=== PATIENT | male | born 1995 | race Caucasian/White ===

== ENCOUNTER 2021-12-28 17:56 | Emergency (ER) | payer OTHER, SELFPAY ==
[2021-12-28 17:58] VITALS: BP 141/89; PULSE 99; RESP 16; TEMP 36.6; O2SAT 96; BMI 21.7
--- NOTE | 2021-12-28 18:15 | ED.VIS.GI ---
HPI HPI - GI History of Present Illness Chief Complaint: Abd Pain Informant: patient and spouse/S.O. Narrative Narrative: Presenting with epigastric pain over the last couple days with black tarry stools and diarrhea. States pain worse with any foods. He has been using Advil more frequently for headache symptoms. Denies recent antibiotics. 2 days ago for bouts of diarrhea that was tarry yesterday had a few episodes today improving denies any bloody stools today. No nausea or vomiting. No abdominal surgeries. Denies family history of Crohn's disease or ulcerative colitis. He states he was told of IBS when he was 11 or 12 however never had any endoscopies. No abdominal surgeries. Increasing fatigue today no lightheaded symptoms [facility] testing that was negative. Prior similar symptoms: No PFSH PFSH Home Medications pantoprazole 40 mg tablet,delayed release 40 mg PO DAILY #30 tabs 12/28/21 [Rx Last Taken Unknown] sucralfate 1 gram tablet (Carafate) 1 g PO BID #60 tabs 12/28/21 [Rx Last Taken Unknown] Allergy/AdvReac Type Severity Reaction Status Date / Time No Known Allergies Allergy Verified 12/28/21 17:58 Surgical History H/O thumb surgery Social History Smoking Status: Current every day smoker tobacco type: cigarettes ROS ROS ED Constitutional Constitutional ED: Denies chills, fever(s) or sweats Eyes Eyes: Denies change in vision ENT ENT ED: Denies dysphagia or sore throat Cardiovascular Cardiovascular: Denies chest pain, leg edema, palpitations or racing heartbeat Respiratory/Chest Respiratory/Chest: Denies cough, dyspnea or dyspnea on exertion Gastrointestinal Gastrointestinal: Reports abdominal pain and diarrhea; Denies nausea or vomiting Genitourinary Genitourinary ED: Denies dysuria, hematuria or urinary frequency Musculoskeletal Musculoskeletal: Denies back pain, extremity pain or neck pain Integumentary Denies rash or wounds Neurologic Neurologic: Denies headache(s), paresthesias or weakness EXAM Physical Exam Const Vital Signs: 12/28/21 17:58 Temperature 98 F Temperature Source Temporal Pulse Rate 99 Respiratory Rate 16 Blood Pressure 141/89 H Blood Pressure Mean 106 Pulse Ox 96 Oxygen Delivery Method Room Air Positive well nourished and well developed General Appearance ED: well developed and NAD HEENT Reports moist mucous membranes normocephalic and atraumatic Eyes PERRL, EOMs intact bilaterally and conjunctivae normal General Eye ED: Yes normal appearance of both eyes Neck no lymphadenopathy and supple General: Negative for tenderness Chest Wall Chest: Negative for tenderness Resp normal respiratory effort and normal air movement Effort and Inspection: symmetric chest movement; Negative for respiratory distress Cardio regular rate, regular rhythm and no murmurs Peripheral Pulses: pulses 2+ throughout GI normal to inspection, nondistended, normoactive bowel sounds and non-tender GI Narrative: Negative Graves's McBurney's tenderness. No reproducible tenderness. Palpation: Negative for guarding or rebound tenderness present Back/Spine no CVA tenderness and no thoracic nor lumbar tenderness Extremity normal to inspection General Extremety ED: Negative for edema or tenderness General Extremity: Negative for edema Neuro oriented x3 and no sensory deficits noted Sensorium / Orientation: awake and alert Skin no rashes or lesions noted and no wounds MDM MDM MDM Narrative Medical decision making narrative: Patient nonsurgical abdomen symptoms currently subsided. Reported melanotic stools that is resolving. He has been taking NSAIDs. Laboratory studies hemoglobin 16.3 normal lipase and liver enzymes. He was given Protonix IV. He is continued on PPI with Carafate for concerns for gastric ulcer. He is clinically stable. He is given follow-up with GI with return precautions. He will avoid NSAIDs. All questions were answered. Lab Data Attestation: I reviewed the patient's lab results. Labs: Laboratory Results - last 24 hr 12/28/21 12/28/21 18:32 18:32 WBC 6.9 RBC 5.21 Hgb 16.3 Hct 46.4 MCV 89.1 MCH 31.3 MCHC 35.1 RDW Std Deviation 36.8 RDW Coeff of Lang 11.4 L Plt Count 230 MPV 8.7 Immature Gran % (Auto) 0.400 Neut % (Auto) 59.2 Lymph % (Auto) 31.7 [place] % (Auto) 7.4 Eos % (Auto) 0.9 Baso % (Auto) 0.4 Absolute Neuts (auto) 4.1 Absolute Lymphs (auto) 2.17 Nucleated RBC % 0 Sodium 139 Potassium 3.8 Chloride 106 Carbon Dioxide 28.0 Anion Gap 5 BUN 10 Creatinine 0.77 Estim Creat Clear Calc 126.74 Est GFR (MDRD) Af Amer 158 Est GFR (MDRD) Non-Af 130 BUN/Creatinine Ratio 13.0 Glucose 96 Calcium 9.0 Total Bilirubin 0.70 AST 16 ALT 23 Alkaline Phosphatase 64 Total Protein 7.3 Albumin 4.0 Globulin 3.3 Albumin/Globulin Ratio 1.2 Lipase 68 L Discharge Plan Triage Chief Complaint: Abd Pain ED Provider: Jayy Ro Dx/Rx/DC Orders Clinical Impression: Gastritis, Abdominal pain, epigastric Instructions: Understanding Gastritis, ED Gastritis Ulcer No Abx Prescriptions: New pantoprazole 40 mg tablet,delayed release (DR/EC) 40 mg PO DAILY Qty: 30 0RF sucralfate [Carafate] 1 gram tablet 1 g PO BID Qty: 60 0RF Referrals: Friend,DO Deangelo [Med Staff - Active Staff] - Activity Restrictions/Additional Instructions: Clinical gastritis with gastric ulcer concerns. Avoid Advil or any NSAIDs. Your hemoglobin 16.3. Take medication as prescribed. You may use Tylenol. Follow-up with GI as an outpatient. Return if any worsening symptoms. Disposition Disposition: Home, Self Care Discharge Date/Time: 12/28/21 19:47
[2021-12-28] MEDS: 0.9% Normal Saline 1,000 ML 1000 ML IV (18:30)
[2021-12-28 18:41] LABS: Absolute Lymphocyte Count 2.17 X10^3/uL (0.83-4.51); Absolute Neutrophil Count 4.1 X10^3/uL (2.0-7.7); Basophil# 0.03 X10^3/uL; Basophil% 0.4 % (0-1); Eosinophil# 0.06 X10^3/uL; Eosinophils% 0.9 % (0-5); Hematocrit 46.4 % (40-54); Hemoglobin 16.3 g/dL (13.0-16.5); Lymphocyte # 2.17 X10^3/ul (0.83-4.51); Lymphocyte % 31.7 % (19-41); Mean Corp Hgb Conc 35.1 g/dL (32-36); Mean Corpuscular Hgb 31.3 pg (27.0-32.0); Mean Corpuscular Volume 89.1 fL (80-94); Mean Platelet Vol. 8.7 fl (6.2-12.0); Monocyte# 0.51 X10^3/uL; Monocyte% 7.4 % (0-10); NRBC Flagged by Analyzer 0 % (0-5); Neutrophil # 4.05 X10^3/uL (2.7-7.7); Neutrophil % 59.2 % (47-70); Platelet Count 230 K/mm3 (150-450); RBC Distribution Width CV 11.4 % (11.6-14.6); RBC Distribution Width SD 36.8 fl (35.1-43.9); Red Blood Count 5.21 M/mm3 (4.6-6.2); White Blood Count 6.9 K/mm3 (4.4-11.0)
[2021-12-28 19:03] LABS: ALB/GLOB Ratio 1.2 RATIO (0.9-2.4); AST(SGOT) 16 U/L (15-37); Alanine Aminotransfer ALT/SGPT 23 U/L (16-61); Alkaline Phosphatase 64 U/L (45-117); Anion Gap 5 (5-15); BUN 10 mg/dL (7-18); Chloride 106 mmol/L (98-107); Creatinine, Serum 0.77 mg/dL (0.70-1.30); EST Glomerular Filtration Rate 130 mL/min (>60); Est Glom Filt Rate - Afr Amer 158 mL/min (>60); Estimated Creatinine Clearance 126.74 ml/min; Globulin 3.3 g/dL (2.2-4.2); Glucose 96 mg/dL (74-106); Lipase 68 U/L (73-393); Potassium 3.8 mmol/L (3.5-5.1); Protein, Total 7.3 g/dL (6.4-8.2); Sodium Level 139 mmol/L (136-145)
== END 2021-12-28 19:47 | disposition home or self-care (01) ==
PROVIDERS: Emergency Provider Emergency Medicine; Visit Provider Emergency Medicine
DX: K29.70 Gastritis, unspecified, without bleeding (principal); R10.13 Epigastric pain; F17.210 Nicotine dependence, cigarettes, uncomplicated
CPT/HCPCS: 80053; 83690; 85025; 96365; 99282; J7030; J3490

== ENCOUNTER 2023-03-23 10:18 | Emergency (ER) | payer OTHER, SELFPAY ==
[2023-03-23 10:19] VITALS: BP 141/82; PULSE 83; RESP 16; TEMP 37; O2SAT 99; BMI 21.7
--- NOTE | 2023-03-23 10:51 | EX.ED.DYSGE1 ---
HPI History of Present Illness Chief Complaint: Nausea/Vomiting Informant: patient Narrative Narrative: Patient is a 27-year-old male with history of migraines and IBS (diagnosed through peds neurology and GI respectively as a child) presenting for vomiting that turned into hematemesis. Patient states he developed headache yesterday and it turned into a migraine around 3 PM yesterday. He started having multiple episodes of vomiting. He states is pretty typical for he does get a migraine. He was vomiting until around midnight. At some point he looked in the trash can and noticed that there was also blood in the trash can. He told his mom about it this morning as he continues to have a mild headache however not as severe. She brought him in to be evaluated further. Patient is never had any endoscopy before. Does not take any medicine on a daily basis but does take Juli, Tylenol or Excedrin as needed for his headaches. He states sometimes he will take his mom sumatriptan with relief of his headaches. Does not have a primary care doctor. His last bowel movement was diarrhea last night. Denies any black or blood in his stool. Denies any fever or chills. No family history of inflammatory bowel disease but does have a strong family history of irritable bowel syndrome. Notes he is having some throat/chest pain but he feels it is from the vomiting. Denies any abdominal pain. No fever or chills. No other complaints or concerns at this time. Does report to me that he would vomit frequently and often for minor reasons. Initially he thought it was from drinking alcohol when he was in his early 20s but stopped drinking alcohol but still gets these episodes of vomiting. PFSH PFSH Home Medications sucralfate 1 gram tablet (Carafate) 1 g PO BID #60 tabs 12/28/21 [Rx Last Taken Unknown] ondansetron 4 mg disintegrating tablet 4 mg PO Q6H PRN nausea and vomiting #20 tabs 03/23/23 [Rx Last Taken Unknown] pantoprazole 40 mg tablet,delayed release 40 mg PO DAILY #30 tabs 03/23/23 [Rx Last Taken Unknown] Allergy/AdvReac Type Severity Reaction Status Date / Time No Known Allergies Allergy Verified 03/23/23 10:19 Surgical History H/O thumb surgery Social History Smoking Status: Current every day smoker tobacco type: cigarettes ROS ROS ED Constitutional Constitutional ED: Denies chills or fever(s) Cardiovascular Cardiovascular: Reports chest pain Respiratory/Chest Respiratory/Chest: Denies cough or dyspnea Gastrointestinal Gastrointestinal: Reports diarrhea, nausea and vomiting; Denies abdominal pain or melena Genitourinary Genitourinary ED: Denies dysuria Musculoskeletal Musculoskeletal: Denies arthralgias or myalgias Integumentary Denies rash Neurologic Neurologic: Reports headache(s); Denies paresthesias or weakness Psychiatric Psychiatric: Denies anxiety Hematologic/Lymphatic Hematologic/Lymphatic: Denies easy bleeding or easy bruising EXAM Physical Exam Const Vital Signs: 03/23/23 10:19 Temperature 98.6 F Temperature Source Temporal Pulse Rate 83 Respiratory Rate 16 Blood Pressure 141/82 H Blood Pressure Mean 101 Pulse Ox 99 Oxygen Delivery Method Room Air Positive well nourished and well developed General Appearance ED: well developed HEENT Reports moist mucous membranes Eyes PERRL and EOMs intact bilaterally General Eye ED: Negative for pale conjunctiva Neck supple Neck Narrative: No nuchal rigidity or meningeal signs Chest Wall inspection of chest normal and palpation of chest normal Chest Narrative: No chest wall crepitus Resp normal respiratory effort and clear to auscultation bilaterally Cardio regular rate, regular rhythm and no murmurs GI normal to inspection, nondistended, normoactive bowel sounds and non-tender Neuro oriented x3 Sensorium / Orientation: alert Motor Exam: Negative for general weakness Psych mental status grossly normal Skin no rashes or lesions noted and no wounds MDM MDM MDM Narrative Medical decision making narrative: Patient evaluated for migraine headache with subsequent vomiting that turned and hematemesis. Still has a mild headache but appears nontoxic. No significant photophobia in the exam room. No focal neurologic symptoms. Differential includes gastritis, Aurea-Dominguez tear, Boerhaave's but less likely as patient is quite nontoxic-appearing, pancreatitis, cirrhosis of the liver. Patient is given IV fluids, Compazine and Benadryl in the ER. We will refrain from giving NSAIDs for his headache due to report of GI bleeding. 2 view chest x-ray reviewed by myself as well as radiology does not show any acute process. Radiology does interpreted on is hyperinflated however clinically patient is not showing any signs of asthma exacerbation/air trapping. He has no further vomiting or hematemesis in the ER. I do not think requires an NG tube at this time. CBC is normal with a normal hemoglobin of 16.0 and no leukocytosis. As normal platelets. CMP largely normal, mildly elevated total bilirubin of 1.1 which is nonspecific. Low suspicion for an acute obstructive process of the gallbladder/bile duct. I do not think he requires an of right upper quadrant ultrasound or further imaging. Lipase is low so low suspicion for acute pancreatitis. I suspect his hematemesis was associated with his forceful vomiting/Aurea Dominguez tear however he is stable with no further bleeding or vomiting so I do not think he requires admission for emergent EGD. Is tolerating water in the ER without any difficulty Patient has improvement of symptoms with medication. Is given a dose of oral Protonix in the ER will be discharged home with a 2-week course. Given referral for family doctor as well as surgery as I suspect he will benefit from an EGD. Counseled the importance of outpatient follow-up. We will discuss further abortive migraine treatment with PCP. Lab Data Attestation: I reviewed the patient's lab results. Labs: Laboratory Results - last 24 hr 03/23/23 11:00 WBC 5.5 RBC 5.01 Hgb 16.0 Hct 45.2 MCV 90.2 MCH 31.9 MCHC 35.4 RDW Std Deviation 38.7 RDW Coeff of Lang 11.7 Plt Count 221 MPV 8.8 Immature Gran % (Auto) 0.200 Neut % (Auto) 64.1 Lymph % (Auto) 27.9 [place] % (Auto) 6.1 Eos % (Auto) 1.3 Baso % (Auto) 0.4 Absolute Neuts (auto) 3.5 Absolute Lymphs (auto) 1.52 Nucleated RBC % 0 Sodium 138 Potassium 3.6 Chloride 104 Carbon Dioxide 29.0 Anion Gap 5 BUN 12 Creatinine 0.75 Estim Creat Clear Calc 129.27 Est GFR (MDRD) Af Amer 161 Est GFR (MDRD) Non-Af 133 BUN/Creatinine Ratio 16.0 Glucose 105 Calcium 8.9 Total Bilirubin 1.10 H AST 17 ALT 29 Alkaline Phosphatase 63 Total Protein 7.2 Albumin 4.1 Globulin 3.1 Albumin/Globulin Ratio 1.3 Lipase 10 L Radiography Diagnostic Testing: Clinical Impression(s) from Imaging Studies Chest X-Ray 03/23/23 11:11 IMPRESSION: Hyperinflation. Electronically Signed: Frantz Smith MD at 11:59 EST , Discharge Plan Triage Chief Complaint: Nausea/Vomiting ED Provider: Jojo Sen Dx/Rx/DC Orders Clinical Impression: Headache, migraine, Hematemesis Instructions: ED, Migraine (Classical), ED Upper GI Bleeding (Stable) Prescriptions: New ondansetron 4 mg tablet,disintegrating 4 mg PO Q6H PRN (Reason: nausea and vomiting) Qty: 20 0RF Continued pantoprazole 40 mg tablet,delayed release (DR/EC) 40 mg PO DAILY Qty: 30 0RF No Action sucralfate [Carafate] 1 gram tablet 1 g PO BID Qty: 60 0RF Primary Care Provider: Care Physician,No Primary Referrals: Gabrielle Sifuentes MD [Med Staff - Farm Adviser] - As soon as possible Josue Lin MD [Med Staff - Active Staff] - As soon as possible NOT,DEFINED [Non-Staff] - Activity Restrictions/Additional Instructions: Your work-up was largely normal today. I suspect the blood in your vomit was from irritation of your esophagus from all of the throwing up. Please take the antacid as prescribed. Please follow-up outpatient with general surgery as I suspect you would benefit from further evaluation/EGD to look at your esophagus and stomach. You have also given referral for primary care doctor. Disposition Disposition: Home, Self Care
[2023-03-23] MEDS: 0.9% Normal Saline (1000mL) 1,000 ML 1000 ML IV (10:57)
[2023-03-23] MEDS: DiphenhydrAMINE 50 MG/ML Syringe 25 MG IV (10:57)
[2023-03-23] MEDS: proCHLORPERazine 10 MG/2 ML Vial 5 MG IV (10:57)
--- NOTE | 2023-03-23 11:11 | RAD_ITS ---
STUDY: X-RAY CHEST REASON FOR EXAM: Male, 27 years old. Chest pain, vomiting TECHNIQUE: Hemoptysis. Chest pain. COMPARISON: None. FINDINGS: Hyperinflation. The lungs are clear. There is no demonstrated pleural abnormality. Normal size heart. Normal mediastinum and ness. Normal visualized pulmonary arteries. Normal visualized aortic arch and descending thoracic aorta. Normal visualized thoracic spine. Normal visualized ribs, clavicles, and shoulders. There is no demonstrated abnormality of the visualized soft tissue structures of the upper abdomen. RAD/Chest PA and Lateral IMPRESSION: Hyperinflation. Electronically Signed: Frantz Smith MD at 11:59 EST ,
[2023-03-23 11:15] LABS: Absolute Lymphocyte Count 1.52 X10^3/uL (0.83-4.51); Absolute Neutrophil Count 3.5 X10^3/uL (2.0-7.7); Basophil# 0.02 X10^3/uL; Basophil% 0.4 % (0-1); Eosinophil# 0.07 X10^3/uL; Eosinophils% 1.3 % (0-5); Hematocrit 45.2 % (40-54); Lymphocyte # 1.52 X10^3/ul (0.83-4.51); Lymphocyte % 27.9 % (19-41); Mean Corp Hgb Conc 35.4 g/dL (32-36); Mean Corpuscular Hgb 31.9 pg (27.0-32.0); Mean Corpuscular Volume 90.2 fL (80-94); Mean Platelet Vol. 8.8 fl (6.2-12.0); Monocyte# 0.33 X10^3/uL; Monocyte% 6.1 % (0-10); NRBC Flagged by Analyzer 0 % (0-5); Neutrophil % 64.1 % (47-70); Platelet Count 221 K/mm3 (150-450); RBC Distribution Width CV 11.7 % (11.6-14.6); RBC Distribution Width SD 38.7 fl (35.1-43.9); Red Blood Count 5.01 M/mm3 (4.6-6.2); White Blood Count 5.5 K/mm3 (4.4-11.0)
[2023-03-23 11:28] LABS: ALB/GLOB Ratio 1.3 RATIO (0.9-2.4); AST(SGOT) 17 U/L (15-37); Alanine Aminotransfer ALT/SGPT 29 U/L (16-61); Albumin, Serum 4.1 g/dL (3.2-5.0); Alkaline Phosphatase 63 U/L (45-117); Anion Gap 5 (5-15); BUN 12 mg/dL (7-18); Calcium,Total 8.9 mg/dL (8.5-10.1); Chloride 104 mmol/L (98-107); Creatinine, Serum 0.75 mg/dL (0.70-1.30); EST Glomerular Filtration Rate 133 mL/min (>60); Est Glom Filt Rate - Afr Amer 161 mL/min (>60); Estimated Creatinine Clearance 129.27 ml/min; Globulin 3.1 g/dL (2.2-4.2); Glucose 105 mg/dL (74-106); Lipase 10 U/L (13-75); Potassium 3.6 mmol/L (3.5-5.1); Protein, Total 7.2 g/dL (6.4-8.2); Sodium Level 138 mmol/L (136-145)
[2023-03-23] MEDS: Pantoprazole Sodium 40 MG Tablet PO (13:03)
[2023-03-23 13:07] VITALS: BP 105/73; PULSE 68; RESP 16; O2SAT 96
== END 2023-03-23 13:08 | disposition home or self-care (01) ==
PROVIDERS: Emergency Provider Emergency Medicine; Visit Provider Emergency Medicine
DX: G43.909 Migraine, unspecified, not intractable, without status migrainosus (principal); K92.0 Hematemesis; F17.210 Nicotine dependence, cigarettes, uncomplicated
CPT/HCPCS: 71046; 80053; 83690; 85025; 96361; 96374; 96375; 99284; J7030; A4216

== ENCOUNTER 2023-03-26 15:52 | Emergency (ER) | payer OTHER, SELFPAY ==
[2023-03-26 15:53] VITALS: BP 158/78; PULSE 78; RESP 16; TEMP 36.6; O2SAT 98; BMI 21.9
[2023-03-26 16:35] LABS: Absolute Lymphocyte Count 2.27 X10^3/uL (0.83-4.51); Absolute Neutrophil Count 3.1 X10^3/uL (2.0-7.7); Basophil# 0.03 X10^3/uL; Basophil% 0.5 % (0-1); Eosinophils% 1.7 % (0-5); Hematocrit 40.9 % (40-54); Hemoglobin 14.2 g/dL (13.0-16.5); Lymphocyte # 2.27 X10^3/ul (0.83-4.51); Lymphocyte % 38.9 % (19-41); Mean Corp Hgb Conc 34.7 g/dL (32-36); Mean Corpuscular Volume 89.3 fL (80-94); Mean Platelet Vol. 9.1 fl (6.2-12.0); Monocyte# 0.29 X10^3/uL; NRBC Flagged by Analyzer 0 % (0-5); Neutrophil % 53.2 % (47-70); Platelet Count 207 K/mm3 (150-450); RBC Distribution Width CV 11.7 % (11.6-14.6); RBC Distribution Width SD 37.5 fl (35.1-43.9); Red Blood Count 4.58 M/mm3 (4.6-6.2); White Blood Count 5.8 K/mm3 (4.4-11.0)
[2023-03-26 16:49] LABS: ALB/GLOB Ratio 1.5 RATIO (0.9-2.4); AST(SGOT) 18 U/L (15-37); Alanine Aminotransfer ALT/SGPT 29 U/L (16-61); Albumin, Serum 4.3 g/dL (3.2-5.0); Alkaline Phosphatase 60 U/L (45-117); Anion Gap 2 (5-15); BUN 11 mg/dL (7-18); BUN/Creat Ratio 13.5 RATIO (10-20); Calcium,Total 8.8 mg/dL (8.5-10.1); Chloride 106 mmol/L (98-107); Creatinine, Serum 0.81 mg/dL (0.70-1.30); EST Glomerular Filtration Rate 121 mL/min (>60); Est Glom Filt Rate - Afr Amer 147 mL/min (>60); Estimated Creatinine Clearance 120.59 ml/min; Globulin 2.8 g/dL (2.2-4.2); Glucose 85 mg/dL (74-106); Potassium 3.9 mmol/L (3.5-5.1); Protein, Total 7.1 g/dL (6.4-8.2); Sodium Level 139 mmol/L (136-145)
[2023-03-26 17:20] LABS: Bacteria 0 SEEN /hpf (None Seen); Mucous, Urine 0 SEEN /hpf (<or=2+); Red Blood Cells-Urine 0 SEEN /hpf (0-5); Squamous Epithelial Cells - UA 0 SEEN /hpf (0-5); White Blood Cells 0 SEEN /hpf (0-5)
[2023-03-26 17:21] LABS: Color, Urine Yellow (Yellow); Glucose, Dipstick Normal (Normal); Ketone-Dipstick Negative (Negative); Leukocyte Esterase-Dipstick Negative /ul (Negative); Nitrite-Dipstick Negative (Negative); Occult Blood-Urine Negative /ul (Negative); Protein-Dipstick Negative (Negative); Urine Bilirubin Dipstick Negative (Negative); Urine Clarity Clear (Clear); Urine Urobilinogen Normal (Normal); Urine pH 6.5 (5.0 - 8.0)
--- NOTE | 2023-03-26 17:24 | ED.VIS.GI ---
HPI HPI - GI History of Present Illness Chief Complaint: GI Bleed Informant: patient Abdominal Pain/Flank Pain Onset: Yesterday Context: Gradual Onset Timing: Continuous Quality: Sharp Location: LUQ Worsened by: Nothing Relieved by: Nothing Nausea/Vomiting/Emesis GI Symptom: Positive for Nausea and Vomiting Quality: Positive for Hematemesis Diarrhea/Melena/Hematochezia GI Symptom: Positive for Diarrhea and Melena; Negative for Hematochezia Onset: Yesterday Stool Quality: Positive for Black Episodes: 1 Associated Symptoms Associated Symptoms: Positive for Frequency; Negative for Dysuria or Hematuria Narrative Narrative: Patient presents with black stools that began yesterday. Patient states he was seen here recently for nausea and vomiting. Patient states that at that time he had an episode of hematemesis. Patient states he was told her from a tear in his esophagus. Patient admits to some left upper quadrant abdominal pain. Patient states nothing makes it better and nothing makes it worse. Patient describes it as sharp. Patient states it has been constant since yesterday. Patient admits to some urinary frequency but denies any dysuria or hematuria. Patient denies any fevers or chills. PFSH PFSH Home Medications sucralfate 1 gram tablet (Carafate) 1 g PO BID #60 tabs 12/28/21 [Rx Last Taken Unknown] ondansetron 4 mg disintegrating tablet 4 mg PO Q6H PRN nausea and vomiting #20 tabs 03/23/23 [Rx Last Taken Unknown] pantoprazole 40 mg tablet,delayed release 40 mg PO DAILY #30 tabs 03/23/23 [Rx Last Taken Unknown] Allergy/AdvReac Type Severity Reaction Status Date / Time No Known Allergies Allergy Verified 03/26/23 15:55 Surgical History H/O thumb surgery Social History Smoking Status: Current every day smoker tobacco type: cigarettes ROS ROS ED Constitutional Constitutional ED: Denies chills or fever(s) Eyes Eyes: Denies blurry vision or change in vision ENT ENT ED: Reports sore throat; Denies rhinorrhea Cardiovascular Cardiovascular: Reports chest pain; Denies palpitations Respiratory/Chest Respiratory/Chest: Denies cough or dyspnea Gastrointestinal Gastrointestinal: Reports abdominal pain, diarrhea, melena, nausea and vomiting Genitourinary Genitourinary ED: Reports urinary frequency; Denies dysuria or hematuria Musculoskeletal Musculoskeletal: Reports back pain; Denies neck pain Integumentary Denies abscess or rash Neurologic Neurologic: Reports headache(s); Denies weakness Allergic/Immunologic Allergic/Immunologic ED: Denies mouth swelling or urticaria EXAM Physical Exam Const Vital Signs: 03/26/23 15:53 03/26/23 18:00 Temperature 98 F Temperature Source Temporal Pulse Rate 78 Respiratory Rate 16 16 Blood Pressure 158/78 H Blood Pressure Mean 104 Pulse Ox 98 Oxygen Delivery Method Room Air Positive well nourished and well developed General Appearance ED: well developed and NAD HEENT Reports moist mucous membranes Neck supple and no JVD Resp normal respiratory effort and clear to auscultation bilaterally Cardio regular rate and regular rhythm GI non-tender and non-distended Auscultation: normoactive bowel sounds Palpation: soft Rectal Exam: visual inspection normal, normal sphincter tone and prostate normal Neuro CN's II-XII intact bilaterally, moves all extremities and no sensory deficits noted Sensorium / Orientation: alert and oriented to person Psych mental status grossly normal and thought process normal MDM MDM MDM Narrative Medical decision making narrative: Differential diagnosis includes Aurea-Dominguez tear, upper gastrointestinal bleeding, peptic ulcer disease, gastric ulcer, anemia, and electrolyte abnormality. CBC will be obtained to assess for anemia and leukocytosis. Comprehensive metabolic profile will be obtained to assess for hepatic function, renal function, and electrolyte abnormality. Urinalysis will be obtained to assess for urinary tract infection. Stool for occult blood will be sent to assess for occult bleeding. Lab Data Attestation: I reviewed the patient's lab results. Lab results narrative: CBC was reviewed and was within normal limits. Comprehensive metabolic profile was reviewed and was within normal limits. Urinalysis was reviewed. There is no evidence of urinary tract infection or hematuria. Stool for occult blood was reviewed and was negative. Labs: Laboratory Results - last 24 hr 03/26/23 03/26/23 16:18 17:15 WBC 5.8 RBC 4.58 L Hgb 14.2 Hct 40.9 MCV 89.3 MCH 31.0 MCHC 34.7 RDW Std Deviation 37.5 RDW Coeff of Lang 11.7 Plt Count 207 MPV 9.1 Immature Gran % (Auto) 0.700 Neut % (Auto) 53.2 Lymph % (Auto) 38.9 [place] % (Auto) 5.0 Eos % (Auto) 1.7 Baso % (Auto) 0.5 Absolute Neuts (auto) 3.1 Absolute Lymphs (auto) 2.27 Nucleated RBC % 0 Sodium 139 Potassium 3.9 Chloride 106 Carbon Dioxide 31.0 Anion Gap 2 L BUN 11 Creatinine 0.81 Estim Creat Clear Calc 120.59 Est GFR (MDRD) Af Amer 147 Est GFR (MDRD) Non-Af 121 BUN/Creatinine Ratio 13.5 Glucose 85 Calcium 8.8 Total Bilirubin 0.50 AST 18 ALT 29 Alkaline Phosphatase 60 Total Protein 7.1 Albumin 4.3 Globulin 2.8 Albumin/Globulin Ratio 1.5 Urine Color Yellow Urine Clarity Clear Urine pH 6.5 Ur Specific [place] 1.010 Urine Protein Negative Urine Glucose (UA) Normal Urine Ketones Negative Urine Occult Blood Negative Urine Nitrite Negative Urine Bilirubin Negative Urine Urobilinogen Normal Ur Leukocyte Esterase Negative Urine RBC 0 SEEN Urine WBC 0 SEEN Ur Squamous Epith Cells 0 SEEN Urine Bacteria 0 SEEN Urine Mucus 0 SEEN Treatment and Re-Evaluation :: Patient was given IV fluids. Patient was feeling better on reevaluation. Patient was advised of his findings. Patient was instructed to follow-up with his primary care physician in 5 to 7 days for further evaluation. Patient understood and was agreeable with the plan. All questions were answered. Discharge Plan Triage Chief Complaint: GI Bleed ED Provider: Darvin Mendoza Dx/Rx/DC Orders Clinical Impression: Abdominal pain Instructions: ED Abdominal Pain Unkn Cause Male... Prescriptions: No Action sucralfate [Carafate] 1 gram tablet 1 g PO BID Qty: 60 0RF ondansetron 4 mg tablet,disintegrating 4 mg PO Q6H PRN (Reason: nausea and vomiting) Qty: 20 0RF pantoprazole 40 mg tablet,delayed release (DR/EC) 40 mg PO DAILY Qty: 30 0RF Stand Alone Forms: ED Work / School Excuse Primary Care Provider: Care Physician,No Primary Referrals: Care Physician,No Primary [Primary Care Provider] - Disposition Disposition: Home, Self Care
[2023-03-26] MEDS: 0.9% Normal Saline (1000mL) 1,000 ML 1000 ML IV (17:52)
[2023-03-26 18:00] VITALS: RESP 16
== END 2023-03-26 21:08 | disposition home or self-care (01) ==
PROVIDERS: Emergency Provider Emergency Medicine; Visit Provider Emergency Medicine
DX: R10.9 Unspecified abdominal pain (principal); F17.210 Nicotine dependence, cigarettes, uncomplicated
CPT/HCPCS: 80053; 81001; 82274; 85025; 96360; 99282; J7030; A4216

== ENCOUNTER 2024-01-09 19:16 | Emergency (ER) | payer OTHER, SELFPAY ==
[2024-01-09 19:17] VITALS: BP 136/81; PULSE 81; RESP 17; TEMP 36.2; O2SAT 94; BMI 23.1
--- NOTE | 2024-01-09 19:30 | EDS_ITS ---
HPI History of Present Illness Chief Complaint: Headache [facility] Medical History (Updated 01/09/24 @ 19:22 by Dian Ybarra) Migraine Home Medications ?Medication ?Instructions ?Recorded ?Last Taken ?Type metoclopramide HCl 5 mg tablet 5 mg PO Q8H PRN PRN headache #10 01/09/24 Unknown Rx (Reglan) tabs metoclopramide HCl 5 mg tablet 5 mg PO Q8H PRN PRN headache 3 01/09/24 Unknown Rx (Reglan) days #14 tabs Allergy/AdvReac Type Severity Reaction Status Date / Time No Known Allergies Allergy Verified 01/09/24 19:25 Surgical History H/O thumb surgery Social History (System 04/02/23 @ 09:06 by Jaylene Renner) Smoking Status: Current every day smoker tobacco type: cigarettes EXAM Physical Exam Const Vital Signs: 01/09/24 19:17 01/09/24 21:17 01/09/24 21:17 Temperature 97.2 F L 97.5 F L Temperature Source Temporal Pulse Rate 81 81 811 H Respiratory Rate 17 16 16 Blood Pressure 136/81 H 121/74 H 121/74 H Blood Pressure Mean 99 89 89 Pulse Ox 94 99 99 Oxygen Delivery Method Room Air MDM MDM MDM Narrative Medical decision making narrative: HISTORY OF PRESENT ILLNESS: 28-year-old male with history of migraines presents with headache. This began 5 days ago. Notes he has a frontal headache that is consistent with prior migraines. No falls or head trauma. No focal neurologic deficits noted. Notes nausea and 1 episode of nonbloody nonbilious vomitus. Patient denies sudden onset or thunderclap headache, denies maximal intensity within 1 minute, vomiting, neck pain, stiffness, changes in vision, fever, history malignancy, syncope, or seizures associated with headache. REVIEW OF SYSTEMS: Pertinent positives: Headache, nausea vomit Pertinent negatives: Focal weakness PHYSICAL EXAM: Nursing triage notes reviewed, Vital signs reviewed Constitutional: please see mdm HENT: MMM Eyes: Pupils equal round and reactive to light, Extraocular muscles intact Neck: No stridor, no JVD, full neck ROM Lungs: Clear to auscultation, No wheezing or rales. No increased work of breathing, no conversational dyspnea, no accessory muscle use, no nasal flaring. No respiratory distress noted Heart: Regular rate and rhythm, No murmurs, No rubs and No gallops, 2+ distal pulses (radial, femoral, posterior tibial) in all extremities Abdomen: Soft, there is no tenderness, rigidity, rebound or guarding, no obvious peritoneal signs, no palpable pulsatile abdominal masses, no auscultated abdominal bruit : No CVAT Extremities: No edema Neuro: Alert and oriented x3, neuro exam at baseline, cranial nerves II through XII are intact. No pain with extraocular muscle movement. There is negative test of skew. 5 of 5 strength in upper and lower extremities in flexion extension. Intact sensation to light touch in upper and lower extremity dermatomes. No truncal or extremity ataxia. No dysdiadochokinesia. Normal gait. 2+ reflexes in upper and lower extremities. No meningeal signs. Negative Babinski. NIH of 0. Skin: No rash or lesions noted MEDICAL DECISION MAKING: Chief Complaint: Head External records reviewed: Reviewed prior ED visit. No recent adVance imaging of the brain Factors affecting care: none migraine Social determinants of health: none History obtained from others: none Consults: none [facility] Narrative: Patient was initially hemodynamically stable, afebrile and nontoxic-appearing. No focal neurologic deficits noted. I considered the following differential diagnosis: ICH, mass, subarachnoid hemorrhage, migraines No indication for advanced imaging of the brain given lack of focal neurologic deficit and history most consistent with migraine I treat the patient with a headache cocktail consisting of 5 mg IV Reglan, 15 mg IV Toradol, 650 mg of oral Tylenol and 1 L normal saline Patient was reassessed headache improved. Repeat neurologic exam remained intact. Repeat vital signs were stable. Although it is documented in chart as a pulse of 111 patient's pulse is actually 81 this was a store host error. The patient looks great and is in no significant objective discomfort currently. The patient's headache is non-specific. Exam is unremarkable. The patient is in no distress and the patient?s neurological exam is non-focal, neck is supple and without meningismus. The headache is not consistent with meningitis or infection, nor is it consistent with intracranial bleed (SAH etc.), carotid dissection, nor mass by history and examination. Medication and outpatient follow-up was instructed. The patient was instructed to return as needed or if symptoms changed or worsened, fever developed or inability to tolerate fluids. The patient agreed with plan. The patient and/or family, caregivers express understanding. The patient and/or family, caregivers agrees with the plan. Shared decision making: I will have a discussion with the patient and or visitors regarding risk/benefits of further testing or admission. They will be made aware of of the risk/benefits inherent in this decision they will be given the opportunity to voice understanding. Total critical care time today provided was at least 0 minutes. This excludes separately billable procedures. Critical care time (if documented) is secondary to the patient having high probability of clinically significant/life threatening deterioration in the patient's condition which required my urgent intervention. Impression: 1. Headache 2. Acute migraine Dispo: Discharge home This note was generated with [employer] dictation software. It may contain incorrect words, spelling, and punctuation that were not noted in review of the chart prior to signing. Discharge Plan Triage Chief Complaint: Headache ED Provider: Jake Mandujano Dx/Rx/DC Orders Instructions: ED, Migraine (Classical) Prescriptions: New metoclopramide HCl [Reglan] 5 mg tablet 5 mg PO Q8H PRN PRN (Reason: headache) Qty: 10 0RF metoclopramide HCl [Reglan] 5 mg tablet 5 mg PO Q8H PRN PRN (Reason: headache) 3 Days Qty: 14 0RF Stand Alone Forms: ED Work / School Excuse Primary Care Provider: Care Physician,No Primary Referrals: Slava Barker MD [Non-Staff] - Activity Restrictions/Additional Instructions: Thank you for trusting us with your care today! Please take Tylenol (2 pills, 650 mg), ibuprofen (2 pills, 400 mg) every 6 hours as needed for pain and fever control. Please take Reglan as needed for breakthrough migraine symptoms. Please return to the emergency department if your symptoms change or worsen. Please follow with your primary care physician and/or neurology (Dr. Barker) for further outpatient evaluation and management. Print Language: Divehi Disposition Disposition: Home, Self Care Discharge Date/Time: 01/09/24 21:51
[2024-01-09] MEDS: 0.9% Normal Saline (1000mL) 1,000 ML 999 ML IV (19:59)
[2024-01-09] MEDS: Metoclopramide 10 MG/2 ML Vial 5 MG IV (19:59)
[2024-01-09] MEDS: Acetaminophen 500 MG Tablet PO (19:59)
[2024-01-09] MEDS: Ketorolac 15 MG/ML Vial IV (20:00)
[2024-01-09 21:17] VITALS: BP 121/74; PULSE 81; PULSE 811; RESP 16; TEMP 36.4; O2SAT 99
== END 2024-01-09 21:51 | disposition home or self-care (01) ==
PROVIDERS: Emergency Provider Emergency Medicine; Visit Provider Emergency Medicine
DX: G43.909 Migraine, unspecified, not intractable, without status migrainosus (principal); F17.210 Nicotine dependence, cigarettes, uncomplicated
CPT/HCPCS: 96361; 96374; 96375; 96376; 99283; J7030; A4216

== ENCOUNTER 2024-01-26 19:55 | Emergency (ER) | payer OTHER, SELFPAY ==
[2024-01-26 19:56] VITALS: BP 130/83; PULSE 90; RESP 16; TEMP 36.5; O2SAT 99; BMI 23.8
--- NOTE | 2024-01-26 20:31 | EDS_ITS ---
HPI History of Present Illness Chief Complaint: Headache Informant: patient Onset/Context/Timing Onset: Days Context: Gradual Timing: Continuous Quality -Headache: Positive for Similar Prior Headaches Current Severity: Moderate Maximum Severity: Moderate Associated Symptoms/Injury Associated Symptoms: Positive for Nausea; Negative for Fever Injury - MULLEN: Negative for Direct Trauma, Fall or Assault Narrative Narrative: 28-year-old male history of migraine headaches. It is a gradual onset of headache about 2 to 3 days ago. It is all over. Denies any trauma. No fever. No sinusitis. He had a migraine 2+ weeks ago that he was seen emergency for before. He states he has had prior MRI and has no history of brain aneurysm. His mom have migraine headaches. He said this is typical for one of his migraines. He denies any recent trauma. Prior similar symptoms: Yes Recent Illness/Hospitalization: No PFSH PFSH Medical History Migraine Home Medications ?Medication ?Instructions ?Recorded ?Last Taken ?Type NK 01/26/24 Unknown History Allergy/AdvReac Type Severity Reaction Status Date / Time No Known Allergies Allergy Verified 01/26/24 19:57 Surgical History H/O thumb surgery Social History Smoking Status: Current every day smoker tobacco type: cigarettes ROS ROS ED ROS Narrative Headache. Nausea. Constitutional Constitutional ED: Denies chills or fever(s) Eyes Eyes: Denies blurry vision ENT ENT ED: Denies ear pain Respiratory/Chest Respiratory/Chest: Denies cough Gastrointestinal Gastrointestinal: Reports nausea; Denies abdominal pain, constipation, diarrhea or melena Genitourinary Genitourinary ED: Denies dysuria or hematuria Musculoskeletal Musculoskeletal: Denies arthralgias Integumentary Denies abscess Neurologic Neurologic: Reports headache(s); Denies paresthesias, weakness or other Psychiatric Psychiatric: Denies anxiety Endocrine Endocrinology: Denies polydipsia Hematologic/Lymphatic Hematologic/Lymphatic: Denies easy bleeding Allergic/Immunologic Allergic/Immunologic ED: Denies mouth swelling EXAM Physical Exam Narrative Exam Narrative: 28-year-old male vital signs stable afebrile. Lying in a darkened room. Family present. He does not look septic or toxic. He is no distress. H EENT exam photophobia. Pupils round react to light. No facial droop. No trauma. Neck nontender. No lymphadenopathy. No meningismus. Lungs clear to auscultation bilateral. Heart regular rate and rhythm no murmur. Abdomen soft nontender. Moving all 4 extremities. 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 Dorsi plantarflexion intact. NIH score 0. Fingertip to nose and [id number] within normal limits. No drift. Const Vital Signs: 01/26/24 19:56 Temperature 97.7 F L Temperature Source Oral Pulse Rate 90 Respiratory Rate 16 Blood Pressure 130/83 H Blood Pressure Mean 98 Pulse Ox 99 Oxygen Delivery Method Room Air Positive well nourished and well developed; Negative for obese, cachectic, contractures or unkempt General Appearance ED: well developed and NAD; Negative for unkempt, cachectic, contractures, cyanotic, diaphoretic or pallor Nutritional Appearance: Negative for cachectic or obese HEENT Reports normocephalic and moist mucous membranes atraumatic; Negative for trauma, tenderness, temporal artery tenderness or vesicular rash Face and Sinus: Negative for sinus tenderness Eyes PERRL and EOMs intact bilaterally General Eye ED: Negative for pale conjunctiva or scleral icterus Neck no lymphadenopathy, supple, no meningeal signs and no JVD General: Negative for tenderness Resp normal respiratory effort and clear to auscultation bilaterally Effort and Inspection: Negative for retractions Auscultation: Negative for rales, rhonchi or wheezes Cardio regular rate, regular rhythm, S1 normal heart sound, S2 normal heart sound and no murmurs GI non-tender and non-distended Palpation: soft; Negative for firm, tender or guarding Back/Spine no CVA tenderness Extremity normal to inspection and full ROM General Extremety ED: Negative for edema or tenderness General Extremity: Negative for edema Neuro oriented x3 and CN's II-XII intact bilaterally Sensorium / Orientation: awake, alert, oriented to person, oriented to place and oriented to time; Negative for orientation impaired or lethargic Coordination / Balance: [id number] test normal and [id number] test normal Speech: speech normal Motor Exam: strength 5/5 throughout Psych mental status grossly normal Appearance: Negative for unkempt Attitude: No agitated Mood & Affect: Negative for depressed, anxious or tearful Skin General Skin Exam: elasticity normal; Negative for jaundice or pallor Lesions: no lesions Rashes: no rashes MDM MDM MDM Narrative Medical decision making narrative: 28-year-old male history of migraine headaches. As a similar headache. Normal neurologic exam. Prior MRI which she states was negative is no family history of aneurysms or intracranial bleeds. Neurologic exam normal. Treated with IV fluids, Toradol, Benadryl and Compazine and reassess. I do not think he needs any imaging. Repeat exam patient is doing well at 9:20 PM. Repeat neuroexam normal. Headache resolved. Feeling better. Patient feels comfortable being discharged to home as does his family. History & Record Review Discussion w/independent historian: Patient and Family Additional record(s) reviewed:: Prior inpatient record, Prior outpatient record, Prior ED visit and Prior labs Discharge Plan Triage Chief Complaint: Headache ED Provider: Jean-Paul Gleason Dx/Rx/DC Orders Clinical Impression: Headache, migraine Instructions: ED, Migraine (Classical) Prescriptions: No Action NK Primary Care Provider: Care Physician,No Primary Referrals: Jonny Kaye MD [Med Staff - Director [employer]] - As soon as possible Care Physician,No Primary [Primary Care Provider] - Activity Restrictions/Additional Instructions: Plenty of fluids and rest. Motrin and Tylenol for pain. Follow-up with local primary care physician as needed. Print Language: Mexican Disposition Disposition: Home, Self Care
[2024-01-26] MEDS: 0.9% Normal Saline (1000mL) 1,000 ML 1000 ML IV (20:46)
[2024-01-26] MEDS: Ketorolac 30 MG/ML Syringe IV (20:46)
[2024-01-26] MEDS: Metoclopramide 10 MG/2 ML Vial IV (20:47)
[2024-01-26] MEDS: DiphenhydrAMINE 50 MG/ML Syringe IV (20:47)
[2024-01-26 21:32] VITALS: BP 126/78; PULSE 69; RESP 16; TEMP 36.4; O2SAT 97
== END 2024-01-26 21:34 | disposition home or self-care (01) ==
PROVIDERS: Emergency Provider Emergency Medicine; Visit Provider Emergency Medicine
DX: G43.909 Migraine, unspecified, not intractable, without status migrainosus (principal); F17.210 Nicotine dependence, cigarettes, uncomplicated
CPT/HCPCS: 96361; 96374; 96375; 96376; 99282; A4216

== ENCOUNTER 2024-01-28 19:26 | Emergency (ER) | payer OTHER, SELFPAY ==
[2024-01-28 19:26] VITALS: BP 135/94; PULSE 82; RESP 19; TEMP 36.2; O2SAT 97; BMI 24.1
== END 2024-01-28 20:40 | disposition left against medical advice (07) ==
LOC: ED 21:09
DX: Z53.21 Procedure and treatment not carried out due to patient leaving prior to being seen by health care provider (principal)